=== PATIENT | female | born 1970 | race African-American/Black ===

== ENCOUNTER → 2017-02-13 | Outpatient (CLI) | payer OTHER ==
[2016-01-11 22:46] VITALS: BP 162/102
--- NOTE | 2017-02-13 15:31 | RAD ---
DATE: 02/13/2017 EXAM: DIGITAL DIAGNOSTIC BILATERAL, BREAST BILATERAL HISTORY: Right breast discharge COMPARISON: Baseline study This study was interpreted with the benefit of Computerized Aided Detection (CAD). FINDINGS: There are scattered fibroglandular densities in the breasts. There is a prominent cluster of nodules centered at the 12:00 location in the right breast. This overall process measures 6-7 cm. Some of the margins are smooth and well-defined while others are obscured by adjacent fibroglandular tissues. There is a smaller 17 mm oval opacity projected over the medial aspect of the right breast. On the left there is a 2.7 cm oval shaped nodule projected over the lateral breast. There are scattered microcalcifications in both breasts. The distribution and morphology of the majority of these microcalcifications suggests suggests a benign etiology. There is a small grouping of heterogeneous microcalcifications in the right breast laterally which demonstrates a linear configuration. These are of moderate concern, particularly in view of the history of right breast discharge. Bilateral breast ultrasound, 02/13/2017: Both breasts were carefully examined. At the 12-1 o'clock location in the right breast there is a cluster of simple cysts. The largest of these measures 4.2 cm. There is an adjacent 2.6 cm simple cyst along the superior aspect of the larger cyst. At the 3:00 location in the right breast approximately 4 cm from the nipple there is a oval-shaped cyst measuring 1.5 cm. In the left breast at the 1:00 location approximately 10 cm from the nipple there is a 2.1 cm simple cyst. The above described simple cysts correspond in size and location to the mammographic abnormalities. Additionally in the left breast at the 2:00 location approximately 6 cm from the nipple there is a tiny 6 mm hypoechoic nodule. Its margins are smooth. A similar tiny nodule is noted at the 3:00 location in the left breast approximately 3 cm from the nipple. These small lesions demonstrate low level internal echoes. They are probably complicated cysts or fibroadenomas. IMPRESSION: 1. Bilateral simple breast cysts as described above. 2. Additional tiny hypoechoic nodules in the left breast probably represent complicated cysts or fibroadenomas. Sonographic follow-up in 6 months is suggested to establish stability. 3. Predominantly benign-appearing calcifications in both breasts, although one cluster on the right does demonstrate mildly suspicious morphology. 4. Right galactography should be considered for further evaluation. BI-RADS CATEGORY: 0 INCOMPLETE: NEEDS ADDITIONAL IMAGING EVALUATION AND/OR PRIOR MAMMOGRAMS FOR COMPARISON. RECOMMENDED FOLLOW-UP: ADD ADDITIONAL IMAGING PQRS compliance statement: Patient information was entered into a reminder system with a target due date for the next mammogram. Mammography is a sensitive method for finding small breast cancers, but it does not detect them all and is not a substitute for careful clinical examination. A negative mammogram does not negate a clinically suspicious finding and should not result in delay in biopsying a clinically suspicious abnormality. "Our facility is accredited by the [employer] Mammography Program."
== END | disposition home or self-care (01) ==
LOC: KCIC MAMMO 13:58
PROVIDERS: ATTEND Family Medicine
DX: R92.8 Other abnormal and inconclusive findings on diagnostic imaging of breast (principal); N64.3 Galactorrhea not associated with childbirth
CPT/HCPCS: 76641; G0204; 77066